=== PATIENT | female | born 1980 | race Caucasian/White ===

== ENCOUNTER 2020-11-09 23:11 | Inpatient (IN) | payer OTHER ==
[~2020-11-09] VITALS: Ht 180.3 cm; Wt 130.7 kg
[2020-11-10 00:23] LABS: HEMOGLOBIN 7.8 gm/dl (12.3-15.3); RED BLOOD COUNT 4.3 M/UL (4.00-5.10); WHITE BLOOD COUNT 3.6 K/UL (4.5-11.0)
[2020-11-10 00:42] LABS: BUN/CREATININE RATIO 4 (0-10)
[2020-11-10 08:53] LABS: BUN/CREATININE RATIO 2 (0-10)
[2020-11-10] MEDS ORDERED: OMEPRAZOLE20 M1 PO (12:44)
[2020-11-10] MEDS ORDERED: CITALOPRAM HBR20 MG PO (12:44)
[2020-11-10] MEDS ORDERED: MYCOSTATIN100000 UTS PO (12:46)
[2020-11-10 15:26] LABS: BUN/CREATININE RATIO 2 (0-10)
--- NOTE | 2020-11-11 02:41 | NUR ---
PATIENT REFUSING LABS TO CHECK POTASSIUM.
[2020-11-11 07:39] LABS: WHITE BLOOD COUNT 2.9 K/UL (4.5-11.0)
[2020-11-11 07:42] LABS: RED BLOOD COUNT 3.59 M/UL (4.00-5.10)
[2020-11-11 07:44] LABS: HEMOGLOBIN 6.6 gm/dl (12.3-15.3)
[2020-11-11 08:08] LABS: BUN/CREATININE RATIO 4 (0-10)
[2020-11-12 08:41] LABS: RED BLOOD COUNT 4.54 M/UL (4.00-5.10); WHITE BLOOD COUNT 3.7 K/UL (4.5-11.0)
[2020-11-12 08:59] LABS: BUN/CREATININE RATIO 4 (0-10)
[2020-11-12 09:17] LABS: HBSAG SCREEN Negative (Negative); HEP A AB, IGM Negative (Negative); HEP B CORE AB, IGM Negative (Negative); HEP C VIRUS AB <0.1 (0.0-0.9)
[2020-11-13 07:22] LABS: HEMOGLOBIN 8.9 gm/dl (12.3-15.3); RED BLOOD COUNT 4.42 M/UL (4.00-5.10); WHITE BLOOD COUNT 3.3 K/UL (4.5-11.0)
[2020-11-13 07:45] LABS: BUN/CREATININE RATIO 8 (0-10)
[2020-11-14 06:10] LABS: HEMOGLOBIN 9.2 gm/dl (12.3-15.3); RED BLOOD COUNT 4.5 M/UL (4.00-5.10); WHITE BLOOD COUNT 3.5 K/UL (4.5-11.0)
[2020-11-14 07:09] LABS: BUN/CREATININE RATIO 9 (0-10)
[2020-11-15 11:04] LABS: HEMOGLOBIN 8.9 gm/dl (12.3-15.3); RED BLOOD COUNT 4.26 M/UL (4.00-5.10); WHITE BLOOD COUNT 3.7 K/UL (4.5-11.0)
--- NOTE | 2020-11-15 11:18 | NUR ---
TELE STRIP ON CHART SHOWING PATIENTS TACHYCARDIA WHEN ACTIVE. NURSE ALSO SPOKE WITH DR. FRASER ABOUT PAITNES EPISODES OF TACHYCARDIA AND INFORMED HIM THAT TELE STRIP WAS IN CHART.
[2020-11-15 11:26] LABS: BUN/CREATININE RATIO 12 (0-10)
[2020-11-16 06:11] LABS: HEMOGLOBIN 8.8 gm/dl (12.3-15.3); RED BLOOD COUNT 4.18 M/UL (4.00-5.10); WHITE BLOOD COUNT 3.9 K/UL (4.5-11.0)
[2020-11-16 06:59] LABS: BUN/CREATININE RATIO 14 (0-10)
[2020-11-17 08:04] LABS: HEMOGLOBIN 8.6 gm/dl (12.3-15.3); RED BLOOD COUNT 4.03 M/UL (4.00-5.10); WHITE BLOOD COUNT 3.7 K/UL (4.5-11.0)
[2020-11-17 08:18] LABS: BUN/CREATININE RATIO 14 (0-10)
[2020-11-17 10:14] LABS: CREATININE, URINE 70.9 mg/dL (Not Estab.)
[2020-11-17 13:14] LABS: ALDOS/RENIN RATIO 0.2 (0.0-30.0); ALDOSTERONE 5.9 ng/dL (0.0-30.0)
[2020-11-18 09:23] LABS: BUN/CREATININE RATIO 13 (0-10)
[2020-11-18 09:59] LABS: HEMOGLOBIN 8.8 gm/dl (12.3-15.3); RED BLOOD COUNT 4.04 M/UL (4.00-5.10); WHITE BLOOD COUNT 3.5 K/UL (4.5-11.0)
[2020-11-18] MEDS ORDERED: GLUCOPHAGE 850850 MG PO (10:23)
[2020-11-18] MEDS ORDERED: ACETAMINOPHEN325 MG PO (10:23)
[2020-11-18] MEDS ORDERED: LANTUS SOL100 UNIT/1 SQ (10:23)
[2020-11-18] MEDS ORDERED: HUMALOG 10100 UNITS/ SC (10:23)
[2020-11-18] MEDS ORDERED: VITAMIN B-1100 M1 PO (10:23)
[2020-11-18] MEDS ORDERED: NOVOLOG FL100 UNIT/1 SC (10:23)
[2020-11-18] MEDS ORDERED: FERROUS SULFAT325 M2 PO (10:23)
[2020-11-18] MEDS ORDERED: FOLIC ACID 1 MG1 MG PO (10:23)
[2020-11-18] MEDS ORDERED: SODIUM BICARBO650 M1 PO (10:31)
== END 2020-11-18 15:30 | DRG 809 ==
LOC: ER1 23:11 → CDU 11-10 03:42 → MED SURG 4 11-10 03:42 → PROG CARE 11-10 13:40 → MED SURG 4 11-12 16:55
PROVIDERS: Internal Medicine; Physician Assistant; ADMIT Internal Medicine
PROC: 30233N1 Transfusion of Nonautologous Red Blood Cells into Peripheral Vein, Percutaneous Approach (ICD-10-PCS; principal; 2020-11-11)
PROC: B24BZZ4 Ultrasonography of Heart with Aorta, Transesophageal (ICD-10-PCS; 2020-11-17)
DX: D61.818 Other pancytopenia (principal); Z68.41 Body mass index [BMI] 40.0-44.9, adult; E87.1 Hypo-osmolality and hyponatremia; E87.2 Acidosis; E87.6 Hypokalemia; A08.4 Viral intestinal infection, unspecified; K29.80 Duodenitis without bleeding; Z20.822 Contact with and (suspected) exposure to COVID-19; R16.2 Hepatomegaly with splenomegaly, not elsewhere classified; D50.9 Iron deficiency anemia, unspecified; E11.65 Type 2 diabetes mellitus with hyperglycemia; F41.9 Anxiety disorder, unspecified; F41.1 Generalized anxiety disorder; E83.39 Other disorders of phosphorus metabolism; R53.81 Other malaise; E66.01 Morbid (severe) obesity due to excess calories; I07.1 Rheumatic tricuspid insufficiency; K75.81 Nonalcoholic steatohepatitis (NASH); Z79.4 Long term (current) use of insulin; Z90.49 Acquired absence of other specified parts of digestive tract; Z88.0 Allergy status to penicillin
CPT/HCPCS: ECHO; 0240U; 36415; 36430; 51701; 70450; 76700; 80048; 80053; 80074; 80307; 81001; 82043; 82088; 82436; 82570; 82728; 82962; 83036; 83540; 83550; 83605; 83690; 83735; 83880; 84100; 84132; 84133; 84156; 84244; 84300; 84439; 84443; 84703; 85025; 85610; 85652; 86140; 86850; 86900; 86901; 86920; 87040; 87081; 87086; 87880; 93005; 93306; 93970; 96374; 96375; 96376; 97110; 97110-GP-CQ; 97116-GP-CQ; 97162; 97166; 97530; 97530-GP-CQ; 97535; 99285; C1751; J1756; J1956; J2405; J3475; J3480; J7030; J7050; P9016; Q9967; U0002